=== PATIENT | female | born 1955 | race Caucasian/White ===

== ENCOUNTER → 2022-02-02 09:42 | Outpatient (CLI) | payer MEDICARE, SELFPAY ==
--- NOTE | ~2022-02-02 | MR_ITS ---
EXAMINATION: MR knee LT wo con DATE: 02/02/2022 10:34 INDICATION: Acute onset left knee pain TECHNIQUE: Magnetic resonance imaging (MRI) of the left knee was performed without intravenous contra st. Sequences included coronal PD-weighted FSE, coronal PD-weighted FS FSE, sagittal T2-weighted FSE , sagittal PD-weighted FS FSE and axial PD weighted fat saturated FSE. COMPARISON: None. FINDINGS: Medial compartment: Complex tear of the medial meniscus with longitudinal horizontal tear plane extending to the cephalad articular surface of the body and posterior horn. There is a secondary radial tear involving the por tion of the meniscus cephalad to the horizontal tear plane at the posterior body. The posterior horn appears smaller than typical with suggestion of a small macerated appearing meniscal flap extending s uperolaterally from the lateral side of the posterior horn. There is partial thickness cartilage loss along the medial tibial plateau and anterior to central weightbearing medial femoral condyle with a few scattered small foci of subarticular edema-like signal change. Lateral compartment: Lateral meniscus is normal. Articular cartilage is normal. Patellofemoral compartment: Small region of shallow chondral ulceration at the superolateral margin of the lateral trochlea with tiny subarticular cystlike change. Additional small region of partial-thickness chondral fissuring at the infra lateral aspect of the medial trochlea. Patellar cartilage is normal. Ligaments and tendons: Anterior and posterior cruciate ligaments are normal. The medial collateral ligament and fibular jacinto ateral ligament complex are normal. The extensor mechanism is normal. The visualized medial and later al hamstring tendons as well as the iliotibial band are normal. Fluid: Minimal left knee joint effusion. No loose osteochondral bodies identified. Small Ivory's cyst measur ing 4.5 x 2.4 x 1.6 cm. Osseous/other: Normal bone marrow signal aside from the previous noted mild subarticular edema-like signal change. N o fracture or pathologic marrow replacing process. IMPRESSION: 1. Complex medial meniscal tear. 2. Mild osteoarthritis with small regions of high-grade chondral malacia the medial and patellofemora l compartments. 3. Minimal left knee joint effusion and small Ivory's cyst. Reviewed, dictated and finalized at location A. IMPRESSION: 1. Complex medial meniscal tear. 2. Mild osteoarthritis with small regions of high-grade chondral malacia the me dial and patellofemoral compartments. 3. Minimal left knee joint effusion and small Ivory's cyst.
== END ==
PROVIDERS: PCP Internal Medicine; Visit Provider Orthopaedic Surgery
DX: S83.232A Complex tear of medial meniscus, current injury, left knee, initial encounter (principal); X58.XXXA Exposure to other specified factors, initial encounter; M17.12 Unilateral primary osteoarthritis, left knee; M25.462 Effusion, left knee
CPT/HCPCS: 73721